=== PATIENT | female | born 2000 | race Caucasian/White ===

== ENCOUNTER 2023-11-07 12:48 | Outpatient (REF) | payer OTHER, SELFPAY ==
--- NOTE | ~2023-11-07 | MR_ITS ---
EXAMINATION: MR KNEE WITHOUT CONTRAST, LEFT CLINICAL INFORMATION: Left knee lump/mass distal to the knee joint. Localized swelling. COMPARISON: None available. TECHNIQUE: MRI of the knee without contrast was performed using routine sequences on a high-field scanner. FINDINGS: MENISCI: Medial Meniscus: Intact. Lateral Meniscus: Intact. LIGAMENTS: Cruciate: Postsurgical change consistent with anterior cruciate ligament reconstruction. The ligament graft is intact. Within the distal aspect of the tibial tunnel, there is cystic change which extends to the cortex where there is an extracortical lobulated cyst in the region of the overlying skin marker. This extracortical cyst measures approximately 1.7 x 3.1 x 3.4 cm in greatest dimension. The extension into the tibial tunnel measures up to 0.7 x 0.8 cm in greatest axial dimension. No adjacent marrow edema or evidence of acute osseous injury. Intact posterior cruciate ligament. Collateral: Thickening of the medial collateral ligament which could represent sequela of a remote injury. No edema or evidence of acute injury. Intact fibular collateral ligament. EXTENSOR MECHANISM: Postoperative change at the patellar tendon consistent with graft donor site. No edema or evidence of acute injury. Intact quadriceps tendon. Normal patellofemoral alignment. ARTICULAR CARTILAGE/BONE: Patellofemoral Compartment: Intact articular cartilage. Medial Compartment: Intact articular cartilage. Lateral Compartment: Intact articular cartilage. JOINT FLUID AND BURSAE: No significant joint effusion or Young's cyst. MR/MR knee LT wo con IMPRESSION: 1. Postsurgical change consistent with anterior cruciate ligament reconstruction. The ligament graft is intact. Within the distal aspect of the tibial tunnel, there is cystic change which extends to the soft tissues where there is an extracortical cyst measuring up to 3.4 cm in greatest dimension. No associated marrow edema or evidence of acute osseous injury. 2. No acute meniscal or ligamentous injury.
== END 2023-11-07 12:49 | disposition home or self-care (01) ==
LOC: HO.MRI 12:48
PROVIDERS: Visit Provider Family Medicine Sports Medicine
DX: M25.562 Pain in left knee (principal); R22.42 Localized swelling, mass and lump, left lower limb
CPT/HCPCS: 73721

== ENCOUNTER 2023-12-20 12:31 | Outpatient (REF) | payer OTHER, SELFPAY ==
--- NOTE | ~2023-12-20 | XR_ITS ---
EXAMINATION: XR KNEE, LEFT CLINICAL INFORMATION: Pain in left knee. COMPARISON: MR left knee 11/07/2023. TECHNIQUE: AP standing view of bilateral knees. Lateral and sunrise views of the left knee. FINDINGS: LEFT KNEE: Moderate joint effusion. Focal spurring/hypertrophic change versus ossicle along the anterior articular surface of the tibia on the lateral view. Mild narrowing of the medial compartment. Single AP standing view of the right knee: Mild narrowing of the medial compartment. XR/XR knee LT 3V IMPRESSION: 1. Moderate left knee joint effusion. 2. Mild narrowing of the medial compartments of bilateral knees.
== END 2023-12-20 12:32 | disposition home or self-care (01) ==
LOC: HO.HOSX 12:31
PROVIDERS: Visit Provider Physician Assistant
DX: M25.562 Pain in left knee (principal); Z98.890 Other specified postprocedural states
CPT/HCPCS: 73562

== ENCOUNTER 2023-12-20 15:02 | Outpatient (AMB) | payer OTHER, SELFPAY ==
--- NOTE | 2023-12-20 15:16 | MHC.OFFVIS ---
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 Patient reports that she has a lump that has been present for about a year. She was seen at [facility] at her school and an MRI was ordered. She was told having a cyst that she can either have drained or have a surgery. She would like to discuss her options today. Hx of surgery to left knee in 2012. 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 She states she noticed a lump on her knee which has been present for about 1 year. She was seen at [facility] at her school where an MRI was ordered. She denies any instability in her knee or pain with stair use. She has a history of left ACL reconstruction in 2012. [facility] Surgical History (Updated 12/27/23 @ 17:17 by Logan Jacobsen PA-C) Hx of left knee surgery Social History (Updated 12/20/23 @ 15:29 by DENY Isaac) Patient Tobacco Use Status: Never used Tobacco Current occupational status: employed and student Current occupation: [employer] Review of Systems Const All systems reviewed & are unremarkable except as noted in HPI and below Physical Exam Vital Signs: BMI result Body Mass Index 20.2 Const General: cooperative, healthy appearing, comfortable, no acute distress, well developed and alert Orientation/consciousness: patient oriented x3 HEENT Head: Yes normal to inspection, Yes normocephalic and Yes atraumatic Eyes General: appearance normal, both eyes and all related structures Resp Effort & Inspection: normal respiratory effort and able to speak in complete sentences Cardio Rate: regular rate Peripheral pulses: Peripheral pulses 2+ throughout GI Palpation (GI): Soft to palpation Skin Lesions: no lesions Rashes: no rashes Neuro General: patient oriented x3 Extrem Other: Left knee: Normal to inspection. Surgical scar is present. There is evidence of ganglion cyst type mass over the anterior tibial incision. She has full ROM. No laxity, no effusion. NVI. Results Reviewed Results Reviewed: X-rays of the left knee obtained in the office today show well-preserved joint space MR knee LT wo con 11/07/23 IMPRESSION: 1. Postsurgical change consistent with anterior cruciate ligament reconstruction. The ligament graft is intact. Within the distal aspect of the tibial tunnel, there is cystic change which extends to the soft tissues where there is an extracortical cyst measuring up to 3.4 cm in greatest dimension. No associated marrow edema or evidence of acute osseous injury. 2. No acute meniscal or ligamentous injury. Assessment & Plan Assessment & Plan (1) S/P ACL reconstruction: Code(s): Z98.890 - Other specified postprocedural states Category: Surgical Plan Images were reviewed with the patient which is significant for cystic type changes extending to the soft tissues and anterior to tibia. She would like this removed. I did discuss the procedure in detail which include excision tibial cyst. I also discussed the risk, benefits, and alternatives, risks including but not limiting to recurrence of cyst, infection and tissue damage to the surrounding structures. She does express understanding and would like to proceed with the surgery. She will be booked accordingly and meet with Dr. Becerra before surgery. Orders: Orders XR knee LT 3V 12/20/23 M25.562 - Pain in left knee Patient Instructions: Scribed for Logan Jacobsen PA-C, by Darien Palacio chief medical technologist, on 12/20/2023 at 3:15 PM JOHNATHON. Logan Barrow PA-C, have personally reviewed and agree with the information entered by the scribe.
[2023-12-20 15:35] VITALS: BMI 20.2
== END 2023-12-20 16:14 | disposition home or self-care (01) ==
PROVIDERS: Visit Provider Physician Assistant
DX: M67.462 Ganglion, left knee (principal)
CPT/HCPCS: 99203

== ENCOUNTER 2024-01-10 10:59 | Outpatient (AMB) | payer OTHER, SELFPAY ==
--- NOTE | 2024-01-10 11:00 | A.OFFVIS_ITS ---
Vital Signs 01/10/24 11:05 Height 5 ft Weight 103 lb BMI 20.1 Intake Visit Reasons: OV-Left knee pain-discuss surgery? Intake Note: Marilynn lira 23 year old female presents today for an MRI Review of the left knee. Left Knee booked 01/23/24 for excision of tibial cyst. Patient reports she is having more pain during ambulation and sensitivity with palpitation. She expres ses she applies ice which gives mild relief. History of left knee ACL repair in 2011 IMPRESSION: 1. Postsurgical change consistent with anterior cruciate ligament reconstruction. The ligament graft is intact. Within the distal aspect of the tibial tunnel, there is cystic change which extends to the soft tissues where there is an extracortical cyst measuring up to 3.4 cm in greatest dimension. No associated marrow edema or evidence of acute osseous injury. 2. No acute meniscal or ligamentous injury. Allergies No Known Allergies Allergy (Verified 01/10/24 11:05) HPI HPI OV-Left knee pain-discuss surgery?: Details: Marilynn lira 23 year old female presents today for an MRI Review of the left knee. Left Knee booked 01/23/24 for excision of tibial cyst. Patient reports she is having more pain during ambulation and sensitivity with palpitation. She ex presses she applies ice which gives mild relief. PFSH Surgical History Hx of left knee surgery Social History Patient Tobacco Use Status: Never used Tobacco Current occupational status: employed and student Current occupation: [employer] Physical Exam Vital Signs: BMI result Body Mass Index 20.1 Const General: cooperative, healthy appearing, no acute distress, well developed and alert HEENT Head: Yes normal to inspection, Yes normocephalic and Yes atraumatic Mouth: moist mucous membranes Eyes General: appearance normal, both eyes and all related structures EOM: EOMs intact bilaterally Resp Other: No audible wheezing Effort & Inspection: normal respiratory effort Cardio Other: Radial pulse palpable with no rythmic abnormalities Back/Spine/Pelvis Cervical Spine: normal cervical lordosis Skin General skin exam: no rashes or lesions noted Neuro General: no focal motor deficits Extrem Other: palpable fullness over prior ACL tibial incision stable emil's/ant drawer no effusion Psych Appearance: grossly normal and well kempt Mental Status: mental status grossly normal Speech and movement: Normal speech and movement present Affect: normal affect Attitude: cooperative Results Reviewed Results Reviewed: IMPRESSION: 1. Postsurgical change consistent with anterior cruciate ligament reconstruction. The ligament graft is intact. Within the distal aspect of the tibial tunnel, there is cystic change which extends to the soft tissues where there is an extracortical cyst measuring up to 3.4 cm in greatest dimension. No associated marrow edema or evidence of acute osseous injury. 2. No acute meniscal or ligamentous injury. Assessment & Plan Assessment & Plan (1) S/P ACL reconstruction: Code(s): Z98.890 - Other specified postprocedural states Category: Surgical Plan: This is a 23 yo with a long history of prior ACL reconstruction with a cyst over the tibial tunnel. The ACL graft appears intact. We discussed treatment options but I recommend excision cyst with possible tibial tunnel debridement. I explained the r/b/a. She expressed understanding. Coding Level of Care Code Est Pt Level 4 (02150) Diagnoses S/P ACL reconstruction Z98.890
[2024-01-10 11:05] VITALS: BMI 20.1
== END 2024-01-10 11:21 | disposition home or self-care (01) ==
PROVIDERS: Visit Provider Orthopaedic Surgery
DX: M67.462 Ganglion, left knee (principal)
CPT/HCPCS: 99214

== ENCOUNTER → 2024-01-10 10:59 | Outpatient (BNVA) | payer OTHER, SELFPAY | PROVIDERS: Visit Provider Orthopaedic Surgery ==

== ENCOUNTER 2024-01-23 06:01 | Day surgery (SDC) | payer OTHER, SELFPAY ==
[2024-01-21 08:23] VITALS: BMI 20.1
--- NOTE | 2024-01-22 12:46 | HO.ANESPROP2 ---
Documented by User: Yvonne Butt NP 01/22/24 12:46 HPI - Anesthesia Eval Consult details Narrative: 23yo F for Left Knee Arthroscopy,with possible Curretage of Tibial Cyst PMFSH Active Problems Active Problems: All Active Problems S/P ACL reconstruction (Acute) Surgical History Surgical History Hx of left knee surgery Social History Social History Patient Tobacco Use Status: Never used Tobacco Use of substances other than those prescribed or required for medical reasons: No Are you DNR?: No Advance Directives: No Advance Directives Information Provided: Yes Patient : No (UCG pending) Current occupational status: employed and student Current occupation: [employer] Allergies Allergy/AdvReac Type Severity Reaction Status Date / Time No Known Allergies Allergy Verified 01/10/24 11:05 Exam Height,Weight and Vital Signs: Height 5 ft Weight 46.72 kg Assessment and Plan Assessment Anesthesia Assessment: Chart Reviewed Documented by User: Bessy Bueno MD 01/23/24 07:35 PMFSH Family History Family history of problems with anesthesia: No Surgical History Surgical History Hx of left knee surgery History of Problems with Anesthesia: No Social History Social History Patient Tobacco Use Status: Never used Tobacco Use of substances other than those prescribed or required for medical reasons: No Are you DNR?: No Advance Directives: No Advance Directives Information Provided: Yes Patient : No (UCG pending) Current occupational status: employed and student Current occupation: [employer] Allergies Allergy/AdvReac Type Severity Reaction Status Date / Time No Known Allergies Allergy Verified 01/10/24 11:05 Exam Airway Mallampati Class: II TM Dist: >3cm Neck ROM: Full Assessment and Plan Assessment Anesthesia Assessment: Anesthesia Plan Discussed Final Anesthetic Review Family History of Problems with Anesthesia: No History of Problems with Anesthesia: No NPO: Yes ASA Class: II Final Preanesthetic Review: No Changes in Pt Med Stat, Meds/Allgs Chart Reviewed, Consent Obtained/Reviewed and Anes Risks/Benef Reviewed Patient Risk: Low Procedure Risk: Low Anesthetic Plan Anesthetic Plan: GA Disposition: Standard PACU
[2024-01-23] VITALS (7 sets, daily range): BP systolic 105–118; BP diastolic 64–83; PULSE 75–96; RESP 16; TEMP 36.3–36.6; O2SAT 99–100; BMI 20.5
[2024-01-23 06:24] LABS: UPreg QC Valid YES; Urine Pregnancy NEGATIVE (NEGATIVE)
[2024-01-23] MEDS: Lactated Ringers 1,000 ML 100 ML IVCONT (06:42)
--- NOTE | 2024-01-23 07:34 | MHC.SHP ---
Pre-Procedural Eval Section A - 24 Hr Update-Section A only Date of Service: 01/23/24 The patient is an INPATIENT: No Changes since office visit: No Cold of Flu in the past 2 weeks, No New Medical Problems, No Changes in Medication and No Patient answered all questions The patient has been examined within 24 hours of the surgical procedure. The History & Physical has been completed within 30 days and I have reviewed it.: Yes Section B - Complete if H&P > 30 days Chief Complaint: Solitary bone cyst, left tibia and fibula Allergies: Allergies Allergy/AdvReac Type Severity Reaction Status Date / Time No Known Allergies Allergy Verified 01/10/24 11:05 Plan I have reviewed the history and physical and performed a pertinent physical examination on my patient. No changes have occurred unless specified. Time Spent With Patient Time: Total time managing care of this patient today ____ minutes.
--- NOTE | 2024-01-23 08:21 | PM.OP ---
Brief Operative Note Date of Service: 01/23/24 Pre-op diagnosis: Tibial cyst Post-op diagnosis: same Procedure: Ganglion cyst left tibia s/p ACL recosntruction Implants: none Surgeon: Rubin Becerra MD Anesthesia: GETA and local Was an Edge Glue Machine Tender used for this Procedure?: Yes Edge Glue Machine Tender: Angie English Estimated blood loss (mL): 30 IV fluids (mL): 500 Pathology: none sent Condition: stable Disposition: PACU
--- NOTE | 2024-01-23 08:21 | W.PM.OPN ---
Operative Note Operative Note Date of Service: 01/23/24 Narrative: Date of Service: 01/23/24 Pre-op diagnosis: Tibial cyst Post-op diagnosis: Ganglion cyst left tibia s/p ACL recontruction Procedure: Excision and curretage left tibial cyst Implants: none Surgeon: Rubin Becerra MD Anesthesia: GETA and local Was an Qa Automation Developer used for this Procedure?: Yes Qa Automation Developer: Angie English Estimated blood loss (mL): 30 IV fluids (mL): 500 Pathology: none sent Condition: stable Disposition: PACU Patient was brought to the operating room and placed supine on the surgical table. She was prepped and draped in standard sterile fashion and a time out was called to identify proper site, proper procedure and IV antibiotics per weight were administered. I began by exsanguinating the limb and insufflating the tourniquet to 300 mm Hg. I then made a 2.5 cm incision over the distal aspect of the prior ACL reconstruction incision. Full-thickness flaps were developed down to the fatty ganglionic mass emanating from the tibial tunnel status post ACL reconstruction. I identified the ganglion on and, while preserving this, dissected around the cyst circumferentially until it was on tethered. I then excised the cyst in its entirety from the tibial tunnel. The tibial tunnel was then examined. I was able to curettage this with a small curette. The tunnel did extend into the joint. The knee stability was examined. There was a negative pivot shift and a stable Seamus's. I then irrigated copiously and closed the fascial tissue over the tunnel with absorbable suture. The wound was then irrigated copiously and closed with absorbable suture. Patient will be weight-bearing as tolerated with knee flexion not to exceed 45 degrees for the next 2 weeks.
== END 2024-01-23 09:56 | disposition home or self-care (01) ==
PROVIDERS: Nurse Practitioner; Visit Provider Orthopaedic Surgery
PROC: (CPT 29870; principal; 2024-01-23 07:30)
DX: M85.462 Solitary bone cyst, left tibia and fibula (principal); Z98.890 Other specified postprocedural states
CPT/HCPCS: 27635; 81025; J0131; J0171; J0690; J1100; J1885; J2250; J2405; J2704; J2795; J3010

== ENCOUNTER → 2024-01-23 06:01 | Outpatient (BNV) | payer OTHER, SELFPAY | PROVIDERS: Visit Provider Orthopaedic Surgery | DX: M67.462 Ganglion, left knee (principal) | CPT/HCPCS: 27635 ==

== ENCOUNTER 2024-01-31 14:18 | Outpatient (AMB) | payer OTHER, SELFPAY ==
--- NOTE | 2024-01-31 14:21 | MHC.OFFVIS ---
Intake Visit Reasons: PO LT knee 01/23/24 NE Intake Note: Marilynn is a 23 year old female who presents today for a post op appointment s/p left knee 01/23/24 NE. Allergies No Known Allergies Allergy (Verified 01/10/24 11:05) HPI HPI PO LT knee 01/23/24 NE: Details: 23-year-old female who presents in the office today 8 days status post left tibial cyst excision and curettage, which was performed on 01/23/[address] Becerra. [facility] Surgical History Hx of left knee surgery Social History Patient Tobacco Use Status: Never used Tobacco Current occupational status: employed and student Current occupation: [employer] Review of Systems Const All systems reviewed & are unremarkable except as noted in HPI and below Physical Exam Const General: cooperative, healthy appearing and no acute distress Resp Effort & Inspection: normal respiratory effort and able to speak in complete sentences Cardio Rate: regular rate Peripheral pulses: Peripheral pulses 2+ throughout GI Palpation (GI): Soft to palpation Skin Lesions: no lesions Rashes: no rashes Extrem Other: Left knee: Incision site is clean, dry, and intact. Steri-stripes were intact. No surrounding erythema or drainage. No signs of infection. Full ROM. NVI. Assessment & Plan Assessment & Plan (1) S/P ACL reconstruction: Comment: 2011 left knee Code(s): Z98.890 - Other specified postprocedural states Category: Surgical Plan Ms. Turner is a 23-y ear-old female who presents in the office today 8 days status post left tibial cyst excision and curettage, which was performed on 01/23/[address] Becerra. Steri-stripes were removed in the office today to assess the wound. New steri-stripes were applied. A prescription for physical therapy was placed in the office today to work on strengthening. Follow up will be in 2 weeks for a wound check, or sooner if needed. Orders: Orders PT Evaluation and Treatment Today M85.662 - Other cyst of bone, left lower leg Patient Instructions: Scribed by Jannie Horn medical assisting program director, for Angie English PA-C on 01/31/2024 at 2:20 pm, EST. Coding Level of Care Code Global (95985) Diagnoses S/P ACL reconstruction Z98.890
== END 2024-01-31 14:41 | disposition home or self-care (01) ==
PROVIDERS: Visit Provider Physician Assistant
DX: Z98.890 Other specified postprocedural states (principal)
CPT/HCPCS: 99024

== ENCOUNTER → 2024-01-31 14:18 | Outpatient (BNVA) | payer OTHER, SELFPAY | PROVIDERS: Visit Provider Physician Assistant ==

== ENCOUNTER 2024-02-15 10:27 | Outpatient (AMB) | payer OTHER, SELFPAY ==
--- NOTE | 2024-02-15 10:30 | A.OFFVIS_ITS ---
Vital Signs 02/15/24 10:32 Height 5 ft Weight 105 lb BMI 20.5 Intake Visit Reasons: PO LT knee 01/23/24 NE-wound check Intake Note: Marilynn is a 23 year old female who presents today for a wound check s/p left knee 01/23/24 NE. Patient Information Interpreted: clinical only Allergies No Known Allergies Allergy (Verified 01/10/24 11:05) HPI HPI PO LT knee 01/23/24 NE-wound check: Details: 23-year-old female who presents in the office today for a wound check; 3 weeks status post left tibial cyst excision and curettage, which was performed on 01/23/[address] Becerra. I last saw the patient in the office on 01/31/2024 when she was referred to physical therapy to work on strengthening. PFSH Surgical History Hx of left knee surgery Social History Patient Tobacco Use Status: Never used Tobacco Current occupational status: employed and student Current occupation: [employer] Review of Systems Const All systems reviewed & are unremarkable except as noted in HPI and below Physical Exam Vital Signs: BMI result Body Mass Index 20.5 Const General: cooperative, healthy appearing and no acute distress Resp Effort & Inspection: normal respiratory effort and able to speak in complete sentences Cardio Rate: regular rate Peripheral pulses: Peripheral pulses 2+ throughout GI Palpation (GI): Soft to palpation Skin Lesions: no lesions Rashes: no rashes Extrem Other: Left knee: Incision site is clean, dry, and intact. Steri-stripes were intact. No surrounding erythema or drainage. No signs of infection. Full ROM. NVI. Assessment & Plan Assessment & Plan (1) S/P ACL reconstruction: Comment: 2011 left knee Code(s): Z98.890 - Other specified postprocedural states Category: Surgical Plan Ms. Turner is a 23-year-old female who presents in the office today for a wound check; 3 weeks status post left tibial cyst excision and curettage, which was performed on 01/23/[address] Becerra. I last saw the patient in the office on 01/31/2024 when she was referred to physical therapy to work on strengthening. Remainder of the steri-stripes were removed in the office today. There were no signs of infection. The patient can return to normal activities as tolerated. Follow-up will be PRN, or sooner if needed. Patient Instructions: Scribed by Jannie Horn certified medical technician, for Angie English PA-C on 02/15/2024 at 10:29 am, EST. Coding Level of Care Code Global (33766) Diagnoses S/P ACL reconstruction Z98.890
[2024-02-15 10:32] VITALS: BMI 20.5
== END 2024-02-15 10:47 | disposition home or self-care (01) ==
PROVIDERS: Visit Provider Physician Assistant
DX: Z98.890 Other specified postprocedural states (principal)
CPT/HCPCS: 99024

== ENCOUNTER → 2024-02-15 10:27 | Outpatient (BNVA) | payer OTHER, SELFPAY | PROVIDERS: Visit Provider Physician Assistant ==